=== PATIENT | male | born 1965 | race Caucasian/White ===

== ENCOUNTER → 2018-08-26 | Outpatient (REF) ==
--- NOTE | 2018-08-27 01:34 | REP ---
Clinical: Pain and disability. Technique: Neutral and frog lateral views of the left hip. Findings: A 1.5 cm corticated loose bodies identified just lateral to the superior margin of the acetabulum. Subtle increased sclerosis to the acetabular roof with very minimal joint space narrowing is also suggested. Remainder examination is within normal limits for age. Impression: Mild arthritic changes as noted above. Electronically Signed by Roman Ferris MD 08/27/2018 01:26 A
--- NOTE | 2018-08-27 02:53 | REP ---
Clinical: Pain and disability. Technique: AP, lateral, bilateral oblique and sunrise views of the left knee. Findings: Early moderate tricompartmental osteoarthritic degenerative changes are appreciated. Findings include subchondral sclerosis along the tibial plateau, chondrocalcinosis, marginal spurring/osteophyte formation. [place] also demonstrates mild prepatellar soft tissue swelling. Impression: Early moderate tricompartmental osteoarthritic degenerative changes. Electronically Signed by Roman Ferris MD 08/27/2018 02:44 A
== END ==
LOC: M SMT 13:00
PROVIDERS: ATTEND Internal Medicine
DX: Z02.71 Encounter for disability determination (principal)

== ENCOUNTER → 2021-01-04 | Outpatient (REF) | payer MEDICARE, OTHER ==
[2021-01-04 18:24] LABS: APPEARANCE, URINE CLEAR (CLEAR); BACTERIA, URINE AUTO NEGATIVE (NEGATIVE); BILIRUBIN, URINE AUTO NEGATIVE (NEGATIVE); BLOOD, URINE BLOOD NEGATIVE (NEGATIVE); COLOR, URINE YELLOW (YELLOW); GLUCOSE, URINE (UA) AUTO 3+ mg/dL (NEGATIVE); KETONE, URINE AUTO NEGATIVE (NEGATIVE); LEUKOCYTE ESTERASE, URINE AUTO NEGATIVE (NEGATIVE); NITRITE, URINE AUTO NEGATIVE (NEGATIVE); PROTEIN, URINE AUTO NEGATIVE (NEGATIVE); RBC, URINE AUTO 0 /HPF (0-3); SPECIFIC GRAVITY URINE AUTO 1.025 (1.002-1.035); SQUAMOUS EPITHELIAL CELL UR AU 0 /HPF (0-6); UROBILINOGEN, URINE AUTO 0.2 mg/dL (0.0-2.0); WBC, URINE AUTO 0 /HPF (0-3)
== END ==
LOC: M SMT 16:59
PROVIDERS: ATTEND Nurse Practitioner Women's Health
DX: R35.0 Frequency of micturition (principal)
CPT/HCPCS: 51798; 81001; 87086; G0463